=== PATIENT | female | born 1945 | race Asian ===

== ENCOUNTER 2018-03-11 22:17 | Emergency (ER) | payer MEDICARE, MEDICAID ==
[~2018-03-11] VITALS: Ht 152.4 cm; Wt 62.3 kg
[2018-03-11] MEDS ORDERED: BENA20 PO (22:25)
[2018-03-11] MEDS ORDERED: LOVA20 PO (22:25)
[2018-03-12 01:05] VITALS: BP 155/79
== END 2018-03-12 01:06 | disposition home or self-care (01) ==
LOC: EMS 22:19
DX: I10 Essential (primary) hypertension (principal); E78.00 Pure hypercholesterolemia, unspecified; Z79.899 Other long term (current) drug therapy
CPT/HCPCS: 99283